=== PATIENT | female | born 1955 | race Caucasian/White ===

== ENCOUNTER → 2017-01-14 | Outpatient (CLI) | payer BC ==
[~2017-01-14] MED LIST: ACID REDUCER150 MG PO; BENADRYL25 M1 PO; CHOLESTEROL MED PO; CIPRO PO; COLACE PO; COZAAR PO; FENOFIBRATE145 M1 PO; FLAGYL PO; K-DUR20 ME1 PO; LASIX20 MG PO; LEVAQUIN PO; LEVOXYL0.137 MG PO; LEVOXYL200 MC1 PO; LORTAB 5/500 TA1 TA1 PO; METRONIDAZOLE PO; PANTOPRAZOLE SO40 MG PO; PHENERGAN25 MG; PREDNISONE PO; PRILOSEC20 MG PO; PRILOSEC40 MG PO; PROTONIX PO; SYNTHROID PO; SYNTHROID0.15 MG PO
--- NOTE | ~2017-01-14 | TT ---
Unit #: [id number] #: [id number] Patient: SURI DELAROSA [id number] [address] [address] [id number] O MR#: [id number] NAME: SURI DELAROSA : 1955 SEX: F STUDY DATE/TIME: 01/22/2017 UNIT: [facility] ROOM: STUDY DESCRIPTION: TT Attending Physician: Isabell Yap M.D. Referring Physician: Isabell Yap M.D. Primary Care Physician: Noemí Krishnamurthy M.D. CARDIOLOGY REPORT EXAM Tilt Table Test. PROCEDURE Baseline blood pressure is 93/62 mmHg. Heart rate is 60. Blood pressure and heart rate was obtained at every minute interval. In supine position, the patient's baseline blood pressure was stable. The patient's oxygen saturation was 100%. The procedure was explained to the patient. The patient was then tilted to 70 degrees. The patient's blood pressure dropped to as low as 80/35 mmHg with a heart rate of 72. The patient was asymptomatic with this. The patient was given one sublingual nitroglycerin. She appeared pale and then lost consciousness briefly. The patient's blood pressure at that time was 92/44 with a heart rate of 43 beats per minute. The table was brought to zero degrees. The patient regained consciousness and blood pressure was stable. CONCLUSION 1. It must be noted that the patient's blood pressure is low normal at 93/62 mmHg at baseline. 2. With 70-degree tilt and sublingual nitroglycerin, the patient had a brief loss of consciousness with a blood pressure of 92/44 and a heart rate of 43. 3. The patient's loss of consciousness was most likely due to drop in blood pressure from the sublingual nitroglycerin. 4. The patient was prescribed Florinef 0.1 mg p.o. daily for low normal blood pressure and symptomatic hypotension. Dictated by... Elyssa Espitia TD: 01/22/2017 15:27 JOB #: [id number] CC: Noemí Krishnamurthy M.D. Unit #: [id number] #: [id number] Patient: SURI DELAROSA CARDIOLOGY REPORT Page 1 of 1 X Isabell Yap MD <ELECTRONICALLY SIGNED> 05/16/17 1429 CARDIOLOGY REPORT
== END | disposition home or self-care (01) ==
LOC: CECH 07:21
DX: R42 Dizziness and giddiness (principal)
CPT/HCPCS: 93660

== ENCOUNTER → 2017-01-14 | Outpatient (CLI) | payer BC ==
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
== END | disposition home or self-care (01) ==
LOC: CMRI 07:10
DX: R42 Dizziness and giddiness (principal); E03.9 Hypothyroidism, unspecified; H93.19 Tinnitus, unspecified ear
CPT/HCPCS: 70551

== ENCOUNTER 2017-03-11 21:46 | Emergency (ER) | payer BC ==
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
--- NOTE | ~2017-03-11 | EKG ---
PATIENT: SURI DELAROSA UNIT #: [id number] Ventricular Rate: 67 BPM Atrial Rate: 67 BPM P-R Interval: 156 ms QRS Duration: 84 ms Q-T Interval: 386 ms QTC Calculation(Bezet): 407 ms P [place]: 53 degrees Calculated R [place]: 57 degrees Calculated T [place]: 104 degrees Diagnosis Line: Normal sinus rhythm Diagnosis Line: Cannot rule out Lateral infarct , age undetermined Diagnosis Line: Borderline ECG Diagnosis Line: No previous ECGs available Diagnosis Line: Confirmed by CORBIN DORSEY MD ([id number]) on 03/12/2017 Diagnosis Line: 10:40:14 AM INTERPRETING MD: WILLIAN KELLY
== END 2017-03-12 02:15 | disposition home or self-care (01) ==
LOC: CED 21:46
DX: S20.01XA Contusion of right breast, initial encounter (principal); V49.00XA Driver injured in collision with unspecified motor vehicles in nontraffic accident, initial encounter
CPT/HCPCS: 71250; 93005; 99284

== ENCOUNTER → 2017-05-08 | Outpatient (CLI) | payer BC ==
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
== END | disposition home or self-care (01) ==
LOC: CWCC 08:58
DX: N63 Unspecified lump in breast (principal); S20.01XA Contusion of right breast, initial encounter; V89.2XXA Person injured in unspecified motor-vehicle accident, traffic, initial encounter; N64.89 Other specified disorders of breast
CPT/HCPCS: 76641

== ENCOUNTER → 2017-07-09 | Outpatient (CLI) | payer BC ==
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
== END | disposition home or self-care (01) ==
LOC: CMRI 08:00 → SMRI 16:15 → CMRI 16:45
DX: M79.602 Pain in left arm (principal); S46.812A Strain of other muscles, fascia and tendons at shoulder and upper arm level, left arm, initial encounter; M75.82 Other shoulder lesions, left shoulder
CPT/HCPCS: 73221

== ENCOUNTER → 2017-07-14 | Outpatient (CLI) | payer BC ==
--- NOTE | ~2017-07-14 | MR187 ---
[facility] A Service of [facility] RADIOLOGY TEXT RESULTS PATIENT: SURI DELAROSA LOCATION: [facility] : 53 UNIT #: [id number] AGE: [address]: Noemí Krishnamurthy MD SEX: F ORDER DR: [id number] [address] [address] [id number] O MR#: [id number] Acc #: [id number] NAME: SURI DELAROSA : 1955 SEX: F STUDY DATE/TIME: 07/14/2017 9:09 UNIT: [facility] ROOM: STUDY DESCRIPTION: MR Wrist Wo Contrast Lt Attending Physician: Noemí Krishnamurthy M.D. Referring Physician: Noemí Krishnamurthy M.D. Ordering Physician: Noemí Krishnamurthy M.D. Primary Care Physician: Noemí Krishnamurthy M.D. MRI CENTER REPORT This report is preliminary unless electronic signature is present. EXAM MRI of the left wrist. HISTORY Fell, 04/21/2017. Complains of wrist pain, diffuse pain. No improvement with physical therapy. COMPARISON Left wrist films, 05/05/2017. FINDINGS Multiplanar, multiecho imaging was performed of the left wrist utilizing a high field magnet dedicated protocol. Examination demonstrates normal carpal alignment. Small amount of edema is noted along the ulnar side of the lunate most likely related to a focus of chondromalacia. There is abnormal marrow signal within the triquetrum, particularly off the dorsal surface and this is felt to correspond to the area of abnormality on the patient's plain films and probably represents a small triquetral avulsion fracture. There is associated edema over the dorsal wrist capsule and a small amount of radiocarpal joint and midcarpal joint fluid. Edema along the dorsal wrist capsule could also represent a component of capsular sprain. The triangular fibrocartilage complex appears intact to include the dorsal and volar radioulnar ligaments and the TFC proper. Meniscal homologue appears intact. The scapholunate ligament not well delineated, but no convincing evidence of a tear and clearly no scapholunate interval widening. Extensor tendons in compartments 1-6 appear normal. The flexor tendons appear normal. Normal-appearing carpal tunnel and Guyon's canal. Median and ulnar nerves appear normal. 5 mm ganglion cyst seen along the volar aspect of the distal radius. Due to its small size and location, this is of doubtful clinical significance. IMPRESSION 1. Focal marrow edema along the dorsal aspect of the triquetrum which is STS. [facility] A Service of [facility] RADIOLOGY TEXT RESULTS PATIENT: SURI DELAROSA LOCATION: [facility] : 53 UNIT #: [id number] AGE: [address]: Noemí Krishnamurthy MD SEX: F ORDER DR: felt to correspond to the area of cortical irregularity and possible fracture noted on the patient's conventional radiographs, and though a discrete fracture fragment is not seen, I strongly suspect that this represents a small triquetral avulsion fracture off the dorsum of the triquetrum. 2. Small wrist effusion, radiocarpal joint and midcarpal joint as well as some edema in the dorsal wrist capsule could represent a component of dorsal capsular sprain with associated soft tissue swelling and edema. 3. Small amount of edema along the proximal lunate, ulnar side and also in the proximal capitate may represent a small foci of chondromalacia. 4. Intrinsic wrist ligaments particularly the TFCC appears intact. Dictated by... Kayode Newby M.D. THIS IS AN ELECTRONICALLY VERIFIED REPORT Kayode Newby M.D. at 07/15/2017 4:46 PM Josiah TD: 07/14/2017 22:09 JOB #: [id number] MRI CENTER REPORT Page 1 of 1
== END | disposition home or self-care (01) ==
LOC: SMRI 08:52
DX: M79.602 Pain in left arm (principal); M25.432 Effusion, left wrist; R60.0 Localized edema
CPT/HCPCS: 73221